=== PATIENT | male | born 1970 | race Caucasian/White ===

== ENCOUNTER 2016-04-07 15:27 | Emergency (ER) | payer OTHER ==
--- NOTE | 2016-04-07 16:10 | UCPHY ---
H & P Patient Type: New HPI/ROS: Chief complaint: Cold symptoms History of present illness: This is a 45-year-old male who presents to the clinic for evaluation of cold symptoms. Patient reports he has been sick for the last 2 weeks. Primarily reports runny nose, nasal congestion, chest congestion and a persistent cough. He further reports body aches. He denies precipitating factors. He denies alleviating factors. He denies other associated signs or symptoms including no fevers, no trouble breathing, no rash. Review of systems: A 10 point review of systems was obtained and other than described above was negative - Family History Significant Family History: Other - Physical Exam Exam: General Appearance: Alert, nontoxic. Eyes: Pupils equal and round no injection. ENT: Tympanic membranes, external auditory canals, external ears and surrounding soft tissue including over the mastoids are unremarkable. Nasopharynx is not injected. There is no rhinorrhea. Oropharynx is not injected. There is no edema. There is no exudate. There is no asymmetry. The uvula is midline. No elevation of the tongue. There is no hoarseness, no drooling, no trismus, no stridor. Respiratory: No use of accessary muscles or evidence of respiratory distress. There are rales in the right lower lung field. Cardiac: regular rate and rhythm Musculoskeletal: Neck is supple and non tender. Extremities have full range of motion and are non tender. Skin: No rashes or lesions. Neurologic: Alert and oriented x4. No meningismus. Moving all extremities well. Ambulating without difficulty. Constitutional: Initial Vital Signs Temperature (C) 36.6 C 04/07/16 16:49 Heart Rate 78 04/07/16 16:49 Respiratory Rate 20 04/07/16 16:49 Blood Pressure 126/85 H 04/07/16 16:49 O2 Sat (%) 95 04/07/16 16:49 O2 Delivery Mode Room Air Allergies/Adverse Reactions: sulfamethoxazole [From ] Allergy (Verified 04/07/16 16:48) trimethoprim [From ] Allergy (Verified 04/07/16 16:48) Home Medications: Medication Instructions Recorded Albuterol [Proventil Inhaler HFA 1 - 2 puffs IH Q4H #1 mdi 04/07/16 (*)] Azithromycin 250 mg PO DAILY 4 Days 04/07/16 Guaifenesin/Codeine Phosphate 10 ml PO Q6 #120 liquid 04/07/16 [Guaifenesin-Codeine Liquid] Medical Decision Making - Diagnostics Imaging: Chest x-ray series with right lower lobe segmental pneumonia, questionable hypertension, see report for complete details ED Course/Re-evaluation: Patient seen under the supervision of my secondary supervising physician Dr. Singh Portillo. Patient presents to the clinic for evaluation of persistent cold symptoms. He is nontoxic. He is afebrile and vital signs are stable. History, physical exam and chest x-ray consistent with pneumonia. He is started on antibiotics. He will be discharged home. Home care is discussed. He is asked to follow up with a primary care doctor for recheck as well as the questionable hypertension seen on chest x-ray. Referral information was provided. Strict return precautions are given. Patient voiced understanding and agreement with plan. Differential Diagnosis: Included but not limited to bronchitis, pneumonia, reactive airway disease, influenza - Data Points Laboratory Results: 04/07/16 15:30 Influenza Typ A,B (DFA) NEGATIVE FOR FLU (NEGATIVE) Medications Given: Discontinued Medications Azithromycin (Zithromax) 500 mg PO EDNOW ONE PRN Reason: Protocol Stop: 04/07/16 16:49 Last Admin: 04/07/16 17:01 Dose: 500 mg Departure - Departure Disposition: Home, Routine, Self-Care Clinical Impression: Pneumonia Condition: Good Instructions: Community Acquired Pneumonia (ED) Additional Instructions: Follow-up with a primary care doctor for recheck Please have your primary care doctor recheck possible hypertension seen on chest x-ray Take all antibiotics as prescribed until finished even feeling better If symptoms worsen or new symptoms develop return to this clinic or the closest emergency department for recheck Referrals: NONE *PRIMARY CARE P,. [Primary Care Provider] - As per Instructions Brittaney Harris MD [Medical Doctor] - As per Instructions Prescriptions: Azithromycin 250 mg PO DAILY 4 Days Guaifenesin/Codeine Phosphate [Guaifenesin-Codeine Liquid] 10 ml PO Q6 #120 liquid Albuterol [Proventil Inhaler HFA (*)] 1 - 2 puffs IH Q4H #1 mdi - PQRS PQRS Measurement: N/A
--- NOTE | 2016-04-07 16:41 | DX ---
Chest, PA and Lateral History: Cough Findings: There is right lower lobe medial basilar consolidation consistent with pneumonia. There is no pleural effusion. Heart size is normal. The left ventricular contour is slightly prominent raising the possibility of left ventricular hypertrophy. Impression: 1. Right lower lobe segmental pneumonia. 2.? Hypertension
[2016-04-07] MEDS ORDERED: AZITHROMYCIN 250 MG TAB PO ONE (16:48)
[2016-04-07 16:51] VITALS: BP 126/85; PULSE 78; RESP 20; TEMP 98; O2SAT 95
== END 2016-04-07 16:56 | disposition home or self-care (01) ==
LOC: CED 15:27
DX: J18.9 Pneumonia, unspecified organism (principal)
CPT/HCPCS: 71020-PO; 87400-PO; G0463-PO